=== PATIENT | male | born 1955 | race Caucasian/White ===

== ENCOUNTER 2021-06-17 09:59 | Emergency (ER) | payer BC ==
[2021-06-17] VITALS (7 sets, daily range): BP systolic 136–184; BP diastolic 72–123
[~2021-06-17] VITALS: Ht 188 cm; Wt 105.0 kg
[2021-06-17 10:38] LABS: HEMATOCRIT 43.8 % (39.0-50.0); HEMOGLOBIN 14.1 g/dl (14.0-18.0); IMMATURE GRANULOCYTES 0.3 % (0.0-5.0); MEAN CELL VOLUME 66.4 fL CALC (80.0-100.0); MEAN CORPUSCULAR HGB 21.4 pG CALC (26.0-32.0); MEAN CORPUSCULAR HGB CONC 32.2 g/dL CAL (32.0-36.0); NEUT# 5.73 thou/uL (1.82-7.42); RED BLOOD COUNT 6.6 mill/uL (4.70-6.10)
[2021-06-17 10:48] LABS: ALBUMIN 4.1 g/dL (3.2-5.0); ALKALINE PHOSPHATASE 75 u/l (38-126); ANION GAP 10 (6-22 (CALC)); BUN 16 mg/dL (8-23); BUN/CREATININE RATIO 18 (12-20 (CALC)); CARBON DIOXIDE 29 mmol/l (22-30); CHLORIDE 102 mmol/l (95-108); CREATININE 0.9 mg/dL (0.7-1.3); GFR > 60 ML/MIN (>=60 (CALC)); GFR FOR AFR.AMER. > 60 ML/MIN (>=60 (CALC)); POTASSIUM 3.7 mmol/l (3.5-5.1); SGOT/AST 22 u/l (19-48); SODIUM 137 mmol/l (137-146); TOTAL PROTEIN 7.2 g/dL (6.3-8.2)
[2021-06-17] MEDS ORDERED: MELOXICAM7.5 MG PO (10:55)
[2021-06-17] MEDS ORDERED: ZESTRIL10 M1 PO (11:04)
[2021-06-17] MEDS ORDERED: CLONIDINE0.2 MG PO (11:04)
== END 2021-06-17 11:47 | disposition home or self-care (01) | DRG 556 ==
LOC: ED 09:59
PROVIDERS: Internal Medicine
DX: M79.672 Pain in left foot (principal); I10 Essential (primary) hypertension; M10.9 Gout, unspecified